=== PATIENT | male | born 1985 | race Caucasian/White ===

== ENCOUNTER 2017-06-19 23:00 | Emergency (ER) | payer SELFPAY ==
[~2017-06-19] VITALS: Ht 180.3 cm; Wt 86.2 kg
== END 2017-06-19 23:30 | disposition left against medical advice (07) ==
LOC: ED 23:00
DX: Z53.21 Procedure and treatment not carried out due to patient leaving prior to being seen by health care provider (principal)

== ENCOUNTER 2017-08-02 11:03 | Emergency (ER) | payer OTHER ==
[~2017-08-02] VITALS: Ht 172.7 cm; Wt 77.1 kg
--- NOTE | 2017-08-02 15:01 | EKG ---
[facility] [address] [place] [address] Signed Sinus rhythm with marked sinus arrhythmia Nonspecific ST abnormality Abnormal QRS-T angle, consider primary T wave abnormality Abnormal ECG When compared with ECG of 09-APR-2016 02:38, Inverted T waves have replaced nonspecific T wave abnormality in Inferior leads Confirmed by TOAN CHAVEZ MD ([id number]) on 08/02/2017 3:01:02 PM Electronically Signed By: TOAN CHAVEZ MD 08/02/17 1501 PATIENT NAME: RASHEEDA SALAS Electrocardiogram DATE OF : 85 PHYSICIAN: TOAN CHAVEZ MD REPORT #: [id number] REPORT IS CONFIDENTIAL AND NOT TO BE RELEASED WITHOUT AUTHORIZATION
== END 2017-08-02 13:13 | disposition home or self-care (01) ==
LOC: ED 11:03
DX: F41.0 Panic disorder [episodic paroxysmal anxiety] (principal); R07.9 Chest pain, unspecified; Z87.891 Personal history of nicotine dependence
CPT/HCPCS: 71046; 80053; 84484; 85025; 93005; 93010; 99284

== ENCOUNTER 2017-09-10 02:05 | Emergency (ER) | payer OTHER ==
[~2017-09-10] VITALS: Ht 172.7 cm; Wt 77.1 kg
== END 2017-09-10 02:37 | disposition home or self-care (01) ==
LOC: ED 02:05
DX: R11.0 Nausea (principal); Z72.89 Other problems related to lifestyle; F41.9 Anxiety disorder, unspecified; Z87.891 Personal history of nicotine dependence
CPT/HCPCS: 99282

== ENCOUNTER 2018-07-05 21:18 | Emergency (ER) | payer OTHER ==
[~2018-07-05] VITALS: Ht 172.7 cm; Wt 86.2 kg
[~2018-07-05 21:18] MED LIST: PERCOCET 5-3251 EACH PO
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
== END 2018-07-06 00:32 | disposition home or self-care (01) ==
LOC: ED 21:18
DX: M62.838 Other muscle spasm (principal); F15.10 Other stimulant abuse, uncomplicated; F41.9 Anxiety disorder, unspecified; F17.200 Nicotine dependence, unspecified, uncomplicated; Z88.0 Allergy status to penicillin; Z79.899 Other long term (current) drug therapy
CPT/HCPCS: 71046; 80053; 81001; 83735; 85025; 96361; 96374; 99284-25; J1200; J7030

== ENCOUNTER 2018-07-06 15:02 | Emergency (ER) | payer OTHER ==
[~2018-07-06] VITALS: Ht 172.7 cm; Wt 86.2 kg
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
== END 2018-07-06 17:37 | disposition home or self-care (01) ==
LOC: ED 15:02
DX: T14.8XXA Other injury of unspecified body region, initial encounter (principal); E86.0 Dehydration; F15.129 Other stimulant abuse with intoxication, unspecified; F41.9 Anxiety disorder, unspecified; F17.200 Nicotine dependence, unspecified, uncomplicated; Z88.0 Allergy status to penicillin; W22.8XXA Striking against or struck by other objects, initial encounter
CPT/HCPCS: 80053; 85025; 96374; 96375; 99285-25; G0480; J1630; J2060; J7030

== ENCOUNTER 2020-11-20 13:11 | Emergency (ER) | payer SELFPAY ==
[~2020-11-20] VITALS: Ht 172.7 cm; Wt 86.2 kg
--- OUTSIDE RECORDS SUMMARY | 2020-11-20 13:16 | XMS ---
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 SALAS Security Perioperative Assistant Events No recent Security Events currently on file CRITERIA MET - Group Notification - 6 ED Visits in 6 Months - [facility] - 3 Facilities in 90 Days [facility]: [phone] [facility]: Primary Care 09/07/2020-Current MEDICAL CONCERN PHONE: [phone] [facility]: [facility] 09/07/2020-[facility] or [facility] PHONE: [phone] Jerrod has no Care Guidelines for this patient. Care History Medical/Surgical 07/06/2018 [facility] - PATIENT CONTACT NUMBER NO LONGER IN SERVICE- - IF PATIENT IS SEEN IN THE ED DURING BUSINESS HOURS MONDAY THRU MONDAY - PLEASE CONTACT [facility] IF PATIENT IS WILLING TO ACCEPT HELP. CONTACT # [phone]. - PATIENT DOES NOT HAVE A PCP - PLEASE PROVIDE CHW CONTACT # [phone] FOR FURTHER HELP/ASSISTANCE. E.D. VISIT COUNT (12 MO.) 1 Praveen Schilling 1 Praveen Garcia 1 [facility] 2 [facility] 3 [facility] 2 [facility] 2 [facility] [address] [facility] 1 [facility] TOTAL 15 NOTE: Visits indicate total known visits. ED/UCC VISIT TRACKING (12 MO.) 11/20/2020 13:11 REMI Peng [place] TYPE: Emergency COMPLAINT: - LEG/NECK PAIN 10/16/2020 00:21 [facility] [place] TYPE: Emergency COMPLAINT: - Pain in left foot DIAGNOSES: 1. Contusion of left foot, initial encounter 2. Other fall from one level to another, initial encounter 3. Essential (primary) hypertension 4. Nicotine dependence, cigarettes, uncomplicated 10/12/2020 02:18 Eltondylan Diallo DEWY ROSE NATALIIA [place] TYPE: Emergency DIAGNOSES: - Cervicalgia - Anxiety 10/09/2020 09:11 [facility] [place] TYPE: Emergency COMPLAINT: - EMS anxiety DIAGNOSES: - EMS anxiety 10/09/2020 07:52 Lo Ordoñez [place] TYPE: Emergency DIAGNOSES: - Chest pain, unspecified - Chest pain - Procedure and treatment not carried out because of patient's decision for other reasons 10/03/2020 18:45 [facility] [place] TYPE: Emergency COMPLAINT: - Tinnitus, unspecified ear - Essential (primary) hypertension DIAGNOSES: 1. Tinnitus, unspecified ear 2. Essential (primary) hypertension 09/26/2020 15:32 Praveen Nunez [place] TYPE: Emergency DIAGNOSES: - Epididymitis - Testicle Pain - Cellulitis, unspecified 06/03/2020 09:39 [facility] [place] TYPE: Emergency DIAGNOSES: - Cervicalgia - NECK GRINDING 06/01/2020 19:06 [facility] TYPE: Emergency DIAGNOSES: - Other stimulant abuse, uncomplicated - general 03/24/2020 23:23 [facility] NATALIIA [place] TYPE: Emergency DIAGNOSES: - Anxiety disorder, unspecified - Mental Health Evaluation - Cervicalgia 03/14/2020 02:31 [facility] TYPE: Emergency COMPLAINT: - Elevated blood-pressure reading, without diagnosis of hypertension DIAGNOSES: 1. Anxiety disorder, unspecified 02/02/2020 08:56 [facility] TYPE: Emergency COMPLAINT: - NECK PAIN - Unspecified injury of neck, initial encounter - Unspecified abnormal involuntary movements DIAGNOSES: 1. Osteophyte, vertebrae 2. Fall on same level from slipping, tripping and stumbling without subsequent striking against object, initial encounter 3. Other cervical disc degeneration at C4-C5 level 01/30/2020 11:56 Lo Nunez [place] TYPE: Emergency DIAGNOSES: - Chest Pain - Shortness of breath - Shortness of Breath 01/02/2020 13:59 [facility] [place] TYPE: Emergency COMPLAINT: - Dysuria DIAGNOSES: 1. Dysuria 2. Hematuria, unspecified 3. Allergy status to penicillin 01/01/2020 15:55 [facility] Valarie Nunez [place] TYPE: Emergency DIAGNOSES: - Dysuria - Hematuria INPATIENT VISIT TRACKING (12 MO.) No inpatient visits to display in this time frame [id number]
== END 2020-11-20 16:21 | disposition home or self-care (01) ==
LOC: ED 13:11
DX: M54.2 Cervicalgia (principal); Z88.0 Allergy status to penicillin
CPT/HCPCS: 72125; 99283-25

== ENCOUNTER 2022-04-01 19:00 | Emergency (ER) | payer SELFPAY ==
[~2022-04-01] VITALS: Ht 172.7 cm; Wt 86.2 kg
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
[2022-04-01] MEDS ORDERED: MELOXICAM15 MG PO (20:01)
[2022-04-01] MEDS ORDERED: CYCLOBENZAPRINE10 MG PO (20:01)
== END 2022-04-01 20:27 | disposition home or self-care (01) ==
LOC: ED 19:00
DX: S16.1XXA Strain of muscle, fascia and tendon at neck level, initial encounter (principal); F17.200 Nicotine dependence, unspecified, uncomplicated; Z88.0 Allergy status to penicillin; X58.XXXA Exposure to other specified factors, initial encounter
CPT/HCPCS: 72040; 99283-25

== ENCOUNTER → 2022-04-30 | Emergency (ER) | payer SELFPAY ==
[~2022-04-30] VITALS: Ht 172.7 cm; Wt 86.2 kg
[~2022-04-30] MED LIST changes: +CYCLOBENZAPRINE10 MG PO; +MELOXICAM15 MG PO
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
== END ==
LOC: ED 01:39
DX: M50.30 Other cervical disc degeneration, unspecified cervical region (principal); F17.200 Nicotine dependence, unspecified, uncomplicated; Z88.0 Allergy status to penicillin; Z79.899 Other long term (current) drug therapy
CPT/HCPCS: 96372; 99283; J1885; J3360

== ENCOUNTER 2023-10-15 17:44 | Emergency (ER) | payer OTHER ==
[~2023-10-15] VITALS: Ht 172.7 cm; Wt 87.9 kg
[2023-10-15] MEDS ORDERED: ADDERALL XR 3030 MG PO (17:59)
[2023-10-15] MEDS ORDERED: DIPHTH,PERTUSS(ACELL),TET VAC 0.5 ML SYRINGE IM ONE (18:00)
[2023-10-15 20:23] VITALS: BP 145/76
== END 2023-10-15 20:12 | disposition home or self-care (01) ==
LOC: ED 17:44
DX: S61.411A Laceration without foreign body of right hand, initial encounter (principal); F17.200 Nicotine dependence, unspecified, uncomplicated; W45.8XXA Other foreign body or object entering through skin, initial encounter; Z88.0 Allergy status to penicillin; Z79.899 Other long term (current) drug therapy

== ENCOUNTER 2024-02-01 02:10 | Inpatient (IN) | payer OTHER ==
[~2024-02-01] VITALS: Ht 175.3 cm; Wt 86.0 kg
[~2024-02-01 02:10] MED LIST changes: +ADDERALL XR 3030 MG PO
[2024-02-01] MEDS ORDERED: OLANZAPINE7.5 MG PO (02:25)
[2024-02-01 02:40] LABS: MCH 29.2 (27-36); MCHC 33.4 g/dl (30-36); MCV 87.3 fl (81-99)
[2024-02-01 02:42] LABS: BASOPHILS 0.4 % (0-2); HEMATOCRIT 47.8 % (35.0-50.0); LYMPHOCYTES 6.5 % (24-44); MONOCYTES 8.5 % (0-12); NEUTROPHILS 84.6 % (39-80); PLATELET COUNT 301 K/uL (140-440); RBC 5.48 M/ul (4.3-5.7); RDW 13.4 (10.5-15.0)
[2024-02-01 03:00] LABS: ALBUMIN 4.6 g/dL (3.4-5.0); ALCOHOL, MEDICAL <3 ng/dL (<3); ALKALINE PHOSPHATASE 139 U/L (46-116); ALT (SGPT) 113 U/L (14-59); ANION GAP 22.9 (7-21); AST (SGOT) 125 U/L (15-37); BILIRUBIN, TOTAL 0.7 ng/dL (0.2-1.0); BUN/CREATININE RATIO 10.89 (6.0-28.6); CALCIUM 10.1 mg/dL (8.5-10.1); CARBON DIOXIDE 23 mmol/L (21-32); CHLORIDE 101 mmol/L (98-107); CREATININE, SERUM 2.02 mg/dL (0.70-1.30); GLOMERULAR FILTRATION RATE,EST 42 mL/min (>60); POTASSIUM 3.9 mmol/L (3.5-5.1); PROTEIN, TOTAL 8.8 g/dL (6.4-8.2); TSH, 3RD GENERATION 0.989 uIU/mL (0.358-3.740); UREA NITROGEN 22 mg/dL (7-18)
[2024-02-01 03:11] LABS: ACETAMINOPHEN 0 ug/mL (10-30); SALICYLATE 2.1 mg/dL (2.8-20.0)
[2024-02-01] MEDS ORDERED: SODIUM CHLORIDE 0.9% 2,000 ML IV SCH (03:15)
[2024-02-01 03:33] LABS: LACTIC ACID, BLOOD 3.9 mmol/L (0.4-2.0)
[2024-02-01] MEDS ORDERED: SODIUM CHLORIDE 0.9% 1,000 ML IV SCH ×5 (03:45→18:00)
[2024-02-01] MEDS ORDERED: CEFTRIAXONE/SODIUM CHLORIDE 2 GM/100 ML PIGGYBACK IV ONE (03:45)
[2024-02-01 06:00] LABS: BILIRUBIN, URINE NEGATIVE (negative); BLOOD/HGB, URINE LARGE (Negative); KETONE, URINE SMALL (Negative); LEUK ESTERASE, URINE NEGATIVE (negative); NITRITE, URINE NEGATIVE (negative)
[2024-02-01 06:05] LABS: EPITHELIAL CELLS, URINE SQUAMOUS 1+ /lpf (0-1+)
[2024-02-01 06:06] LABS: BACTERIA, URINE RARE /hpf (negative); CASTS, URINE NONE SEEN \\lpf; COLLECTION TYPE, URINE CLEAN CATCH; CRYSTALS, URINE NONE SEEN (0-1+); REFLEX CULTURE, URINE No (No); WHITE BLOOD CELLS, URINE 0-1 /HPF (0-5)
[2024-02-01 06:08] LABS: PARTIAL THROMBOPLASTIN TIME 28.3 Sec (22.9-41.3)
[2024-02-01 06:14] LABS: AMPHETAMINES, URINE POSITIVE (NEGATIVE); BARBITURATES, URINE NEGATIVE (NEGATIVE); BENZODIAZEPINE, URINE NEGATIVE (NEGATIVE); BUPRENORPHINE, URINE POSITIVE (NEGATIVE); CANNABINOID, URINE NEGATIVE (NEGATIVE); COCAINE, URINE NEGATIVE (NEGATIVE); ECSTASY, URINE POSITIVE (NEGATIVE); FENTANYL, URINE NEGATIVE (NEGATIVE); METHADONE, URINE NEGATIVE (NEGATIVE); OPIATES, URINE NEGATIVE (NEGATIVE); OXYCODONE, URINE NEGATIVE (NEGATIVE); PHENCYCLIDINE, URINE NEGATIVE (NEGATIVE)
[2024-02-01 06:16] LABS: INR 1.11 (0.80-1.30); PROTIME 13.6 Sec (11.2-14.2)
[2024-02-01 06:28] LABS: ALBUMIN 3.8 g/dL (3.4-5.0); ALBUMIN/GLOBULIN RATIO 1.03 (1.1-2.4); ANION GAP 16.9 (7-21); BILIRUBIN, TOTAL 0.5 ng/dL (0.2-1.0); BUN/CREATININE RATIO 15.82 (6.0-28.6); CALCIUM 8.7 mg/dL (8.5-10.1); CREATININE, SERUM 1.39 mg/dL (0.70-1.30); POTASSIUM 3.9 mmol/L (3.5-5.1); PROTEIN, TOTAL 7.5 g/dL (6.4-8.2)
[2024-02-01] MEDS ORDERED: ondansetron HCL 4 MG/2 ML VIAL IV PRN (08:15)
[2024-02-01] MEDS ORDERED: ACETAMINOPHEN 325 MG TAB PO PRN (08:15)
[2024-02-01 08:55] VITALS: BP 149/98
--- NOTE | 2024-02-01 09:20 | NUR ---
PT UNAVAILABLE FOR VISIT. PROVIDED PRAYER.
[2024-02-01] MEDS ORDERED: AMPHETAMINE SAL30 MG PO (11:37)
--- NOTE | 2024-02-01 11:37 | NUR ---
MED REC COMPLETE
--- NOTE | 2024-02-01 11:56 | NUR ---
UR CLINICAL REVIEW: [facility] INPATIENT FOR RENAL FAILURE, ACUTE SELF-PAY INPT 02/01/24 @ 0811 ORDER MATCHES STATUS NO AUTH, NO INSURANCE. 02/03/24
[2024-02-01] MEDS ORDERED: PHARMACY RENAL DOSE ADJUSTMENT 1 DOSE MISC PO SCH (12:00)
--- NOTE | 2024-02-01 12:31 | NUR ---
BED ALARM STARTED TO GO OFF, I CAME IN TO PT ROOM AND HE JUST WANTED TO SIT ON THE EDGE OF THE BED. PT DIDNT NEED ANYTHING ELSE AND CALL LIGHT IS WITHIN REACH.
--- NOTE | 2024-02-01 13:20 | NUR ---
Spoke with New. He states he is homeless and has been incarcerated until 01/31/24. Pt's emergency contact lives in [place].He does not have any friends or family in [place]. Pt is on probation for 5 years and unable to leave the area. Pt spent one night sleeping on the street before admit to the hospital. He did complete an assessment with JUDAH and qualified for placement to the [facility]. They did not have any beds available. Pt does not use any DME. He has food stamps and states he has money for food on his card. Pt states he does drink and occassionally use drugs. He does not want to speak with PENNIE. He would like to use [facility] for a PCP. I will contact and fax his chart. I called and spoke with the [facility]. They remain full. Pt does not have a working phone, they are unable to notify him when a bed opens. I will give him the number to call daily to check for a bed.
[2024-02-01 13:21] VITALS: BP 136/64
[2024-02-01 13:35] LABS: ANION GAP 13.4 (7-21); BUN/CREATININE RATIO 16.66 (6.0-28.6); CALCIUM 8.2 mg/dL (8.5-10.1); CREATININE, SERUM 1.08 mg/dL (0.70-1.30); POTASSIUM 3.4 mmol/L (3.5-5.1)
--- NOTE | 2024-02-01 13:45 | EKG ---
[facility] [address] [facility] [place] [address] Signed Sinus tachycardia Otherwise normal ECG When compared with ECG of 02-AUG-2017 11:08, Vent. rate has increased BY 57 BPM Nonspecific T wave abnormality has replaced inverted T waves in Inferior leads Confirmed by Amber Cunningham MD () on 02/01/2024 1:45:27 PM Electronically Signed By: AMBER CUNNINGHAM MD 02/01/24 1345 PATIENT NAME: RASHEEDA SALAS RAMON Electrocardiogram DATE OF : 85 PHYSICIAN: AMBER CUNNINGHAM MD REPORT #: [id number] REPORT IS CONFIDENTIAL AND NOT TO BE RELEASED WITHOUT AUTHORIZATION
--- NOTE | 2024-02-01 14:50 | NUR ---
DISCUSSED LENGTH OF TIME PATIENT WILL LIKELY NEED FOR SNF. DISCUSSED HIS NEED FOR PLACEMENT AT THIS TIME TO ENSURE HIS POTENTIAL FOR REHAB IS MET. PATIENT STATES [facility], [facility] AND [facility] ARE HIS 3 PREFERENCES. CLINICALS FAXED TO THESE 3 FACILITIES. [facility] LIKELY WILL HAVE A BED OPEN TOMORROW, BUT WILL NEED TO REVIEW THE CLINICALS BEFORE ACCEPTING PATIENT.
--- NOTE | 2024-02-01 16:56 | NUR ---
PATIENT IN BED AT THIS TIME. PATIENT REQUESTED JUICE, TRANSIT POLICE OFFICER DOUBLE CHECKED WITH RN. TRANSIT POLICE OFFICER PROVIDED PATIENT WITH JUICE WITH ICE. CALL LIGHT WITHIN REACH, NO FURTHER NEEDS AT THIS TIME.
[2024-02-01 17:18] VITALS: BP 134/75
[2024-02-01] MEDS ORDERED: SODIUM CHLORIDE 0.9% 1,000 ML IV ONE ×5 (17:30)
--- NOTE | 2024-02-01 19:57 | NUR ---
REPORT RECIEVED FROM DAY SHIFT RN. PATIENT RESTING IN BED. RESPIRATIONS EVEN AND UNLABORED. CALL LIGHT IN REACH. BED ALARM ON FOR SAFETY.
[2024-02-01 20:26] VITALS: BP 129/75
--- NOTE | 2024-02-01 20:37 | NUR ---
PATIENT RESTING IN BED. VS AND I&Os OBTAINED AND RECORDED. NEW BAG IV FLUID INFUSING PER ORDER. PATIENT REQUESTING PAIN MEDICATION BUT REFUSING TYLENOL. PRN SLEEP MEDICATION PROVIDED. PATIENT IVs FLUSH WNL. ASSESSMENT COMPLETE. PATIENT DENIES FURTHER NEEDS AT THIS TIME. CALL LIGHT IN REACH.
[2024-02-01] MEDS ORDERED: OLANZapine 10 MG TAB PO SCH (21:00)
[2024-02-01] MEDS ORDERED: MELATONIN 3 MG TAB PO PRN (21:00)
--- NOTE | 2024-02-01 22:12 | NUR ---
THIS RN SPOKE VIA TELEPHONE WITH MD REGARDING PATIENTS MEDICATION REQUESTS TO BE ABLE TO SLEEP. NEW ORDERS RECIEVED. VERIFIED USING REPEAT BACK METHOD.
--- NOTE | 2024-02-01 22:56 | NUR ---
PATIENT RESTING IN BED. NEW BAG IV FLUID INFUSING PER ORDER. CATHETER BAG EMPTIED. NO FURTHER NEEDS. CALL LIGHT IN REACH.
--- NOTE | 2024-02-01 23:19 | NUR ---
THIS RN TO ROOM BY PATIENT REQUEST. PATIENT REQUESTING THAT HIS GÓMEZ CATHETER BE REMOVED.
--- NOTE | 2024-02-01 23:28 | NUR ---
THIS RN CALLED MD ABOUT PATIENT GÓMEZ REMOVAL REQUEST AND PATIENT REQUESTING NICOTINE PATCH. NEW ORDERS RECIEVED. VERIFIED USING REPEAT BACK METHOD.
[2024-02-01] MEDS ORDERED: diphenhydrAMINE HCL 50 MG CAP PO ONE (23:45)
[2024-02-01] MEDS ORDERED: NICOTINE 21 MG/24 HR 1 EA TDSY TD SCH (23:45)
[2024-02-02] VITALS (10 sets, daily range): BP systolic 105–146; BP diastolic 75–93
--- NOTE | 2024-02-02 00:15 | NUR ---
IV PUMP ALARMING. NEW BAG IV FLUID INFUSING PER ORDER. NICOTINE PATCH PLACED ON PATIENT R ARM PER PATIENT REQUEST. PATIENT REQUESTING ICE CREAM AND SANDWICH BOX, ICE CREAM AND SANDWICH BOX PROVIDED. PATIENT STATES NO FURTHER NEEDS. CALL LIGHT IN REACH.
--- NOTE | 2024-02-02 01:15 | NUR ---
PIECER UP OBTAINED VITALS AND I&O. PT CATH BAG EMPTIED. PT STATES NO FURTHER NEEDS AT THIS TIME. CALL LIGHT WITHIN REACH.
--- NOTE | 2024-02-02 01:20 | NUR ---
IV PUMP ALARMING. NEW BAG IV FLUID INFUSING PER ORDER. NO FURTHER NEEDS. CALL LIGHT IN REACH.
--- NOTE | 2024-02-02 01:59 | NUR ---
CALL LIGHT ANSWERED. PATIENT REPORTS HAVING NAUSEA. PRN NAUSEA MEDICATION ADMINISTERED PER PATIENT REQUEST. NO FURTHER NEEDS. CALL LIGHT IN REACH.
--- NOTE | 2024-02-02 03:52 | NUR ---
PATIENT RESTING IN BED, AWAKE. PATIENT STATES HIS NECK HURTS. PATIENT HAD URINAL BEHIND HIS HEAD, USING IT A PILLOW. THIS RN OFFERED PATIENT AN ICE PACK. PATIENT STATES "SURE, THAT MIGHT HELP". ICE PACK PROVIDED. URINAL OUT FROM BEHIND PATIENT HEAD AND PLACED ON COUNTER. NO FURTHER NEEDS. CALL LIGHT IN REACH.
[2024-02-02 05:24] LABS: BASOPHILS 0.5 % (0-2); EOSINOPHILS 1.9 % (0-6); HEMATOCRIT 37.9 % (35.0-50.0); HEMOGLOBIN 12.9 g/dL (12.0-18.0); LYMPHOCYTES 29.2 % (24-44); MCH 29.6 (27-36); MCV 87.1 fl (81-99); NEUTROPHILS 56.4 % (39-80); PLATELET COUNT 144 K/uL (140-440); RBC 4.35 M/ul (4.3-5.7); RDW 13.2 (10.5-15.0)
--- NOTE | 2024-02-02 05:28 | NUR ---
VS AND I&Os OBTAINED AND RECORDED. PATIENT DENIES NEEDS AT THIS TIME. CALL LIGHT IN REACH.
[2024-02-02 05:52] LABS: ALBUMIN 3.2 g/dL (3.4-5.0); ALBUMIN/GLOBULIN RATIO 1.03 (1.1-2.4); ANION GAP 13.8 (7-21); BILIRUBIN, TOTAL 0.8 ng/dL (0.2-1.0); BUN/CREATININE RATIO 13.04 (6.0-28.6); CREATININE, SERUM 0.69 mg/dL (0.70-1.30); MAGNESIUM 1.6 mg/dL (1.8-2.4); PHOSPHORUS, INORGANIC 2.4 mg/dL (2.5-4.9); POTASSIUM 3.8 mmol/L (3.5-5.1); PROTEIN, TOTAL 6.3 g/dL (6.4-8.2)
[2024-02-02] MEDS ORDERED: SODIUM CHLORIDE 0.9% 1,000 ML IV SCH ×3 (06:00→20:00)
--- NOTE | 2024-02-02 06:22 | NUR ---
NEW BAG IV FLUID INFUSING PER ORDER. PATIENT HAS NO FURTHER NEEDS. CALL LIGHT IN REACH.
--- NOTE | 2024-02-02 08:39 | NUR ---
recieved report from manufacturing supervisor 2nd shift nurse at 0710. pt is curently awake and resting. pt states that he didnt get enough sleep and would like something to sleep. no other requests at this time
[2024-02-02] MEDS ORDERED: MAGNESIUM REPLACEMENT PROTOCOL ORAL/IV IV SCH (09:00)
[2024-02-02] MEDS ORDERED: ENOXAPARIN SODIUM 40 MG/0.4 ML SYR SUB-Q SCH (09:00)
[2024-02-02] MEDS ORDERED: MAGNESIUM SULFATE 2 GM/50 ML BAG IV ONE (09:30)
--- NOTE | 2024-02-02 09:30 | NUR ---
Spoke with New. Updated I have sent his chart to [facility] to establish care with a pcp. They are closed today. Nicolasa in Eligibility was able to get pt back on [facility] and this is now in the chart. There is still an issue with pt being homeless and not having a phone. Pt will need to check with [facility] for his appt and cont. to check with [facility] to see when a room opens.
--- NOTE | 2024-02-02 10:58 | NUR ---
PT NOT AVAILABLE FOR VISIT. PROVIDED PRAYER.
[2024-02-02] MEDS ORDERED: POTASSIUM REPLACEMENT PROTOCOL ORAL/IV PO SCH (13:45)
--- NOTE | 2024-02-02 16:22 | NUR ---
PATIENT ASKED FOR SOME EAR PLUGS. ASKED HIM IF HE WOULD LIKE THE BLINDS IN HIS ROOM DOWN AND HE SAID YES ALSO GOT HIM A EYE MASK.
--- NOTE | 2024-02-02 17:50 | NUR ---
IN TO START NEW BAG OF FLUIDS, SEE MAR. IV INFUSING WNL. PT REQUESTING WARM BLANKETS, WARM BLANKETS PROVIDED. PT DENIES ANY OTHER NEEDS AT THIS TIME. CALL LIGHT IN REACH. PT LAYING IN BED.
[2024-02-02 18:34] LABS: ANION GAP 10.8 (7-21); BUN/CREATININE RATIO 9.85 (6.0-28.6); CALCIUM 7.8 mg/dL (8.5-10.1); CREATININE, SERUM 0.71 mg/dL (0.70-1.30); POTASSIUM 3.8 mmol/L (3.5-5.1)
--- NOTE | 2024-02-02 19:02 | NUR ---
BEDSIDE REPORT RECEIVED FROM RHIANNA RN, PT AWAKE AND ALERT, FINISHED EATTING MEAL, NEW BAG OF NS HUNG AND INFUSING WELL PER BOLUS, PT REQUESTING SODA, GIVEN PER REQUEST. PT RESTING.
--- NOTE | 2024-02-02 19:50 | NUR ---
TC RECEIVED FROM DR AVNI MD UPDATE RECEIVED CONCERNING NEW ORDERS FOR NS BOLSUSES X 5 MORE THEN DECREASE TO MAINTAINCE OF 250ML/HR.
--- NOTE | 2024-02-02 20:21 | NUR ---
PT APPEARS TO SLEEP, RESP EVEN AND REG, EYE COVERING IN PLACE, NEW NS 1L HUNG, CONTINUES AT 999ML/HR, SITE INTACT, PT AWAKENS, STATES HAVING A LOT OF PAIN IN HIS PENIS, WANTING A BREAK FROM GÓMEZ DUE TO DISCOMFORT, GÓMEZ EMPTIED FOR 1250ML DILUTE YELLOW URINE, PT REQUESTING PAIN MEDICATION, PT REPORTS INJURY TO SCOTUM LATE 2022 TO EARLY 2023, REPORTS FELL OFF A ROOF AND HAD METAL SPIKE THROUGH SCOTUM WITH ONE TESTICLE PROTUDED, PT STATES HE HAD TO HAVE SURGERY TO REPLACE TESTICLE, PT STATES HE THINKS HE GOT A BAD INFECTION AT SURGICAL SITE BUT NEVER RECEIVED CARE, STATES A LOT OF PUS CAME OUT OF SITE, REPORTS NO FURTHER PROBLEMS IN SCOTUM AT THIS TIME. PLAN TO UPDATE MD AND CHECK INTO PAIN MED FOR PAIN IN PENIS. VS DONE AND STABLE.
--- NOTE | 2024-02-02 21:50 | NUR ---
TC TO DR HOLLY PER PT'S REQUEST DUE TO C/O PAIN AND REQUEST FOR SOMETHING STRONGER THAN TYLENOL FOR PAIN, DR HOLLY STATES UNABLE TO ORDER OPIATES AT THIS TIME, PLAN TO GIVE MELATONIN PRN, ICE BAG AND LUBICANT TO PENIS FOR COMFORT, PT UPDATED AND VOICED UNDERSTANDING, PT STATES HE DOESN'T WANT GÓMEZ REMOVED DUE TO NERVOUS IT WILL BE MORE PAINFUL TO REPLACE IF NECESSARY, ICE BAG AND LUBICANT GIVEN PER MD RECOMMENDATION. PT MEDICATED WITH MELATONIN PER ORDER PER PT REQUEST. PT ATTEMPTING TO REST.
--- NOTE | 2024-02-02 22:30 | NUR ---
PER REQUEST OF PRIMARY RN BENJAMIN, IN ROOM TO HANG NEXT 1L NS BOLUS, BOLUS INFUSING WNL. IV SITE WNL. pt RESTING IN BED WITH EUES CLOSED AND EYE MASK IN PLACE, ON RA. RR EVEN AND UNLABORED. NO DISTRESS NOTED. CALL LIGHT IN REACH AND PRIMARY RN UPDATED AND AWARE.
--- NOTE | 2024-02-02 23:33 | NUR ---
PT ASLEEP, RESP EVEN AND REG, NEW BAG OF NS HUNG AND INFUSING WELL A BOLUS.
[2024-02-03] VITALS (9 sets, daily range): BP systolic 116–144; BP diastolic 63–92
--- NOTE | 2024-02-03 00:33 | NUR ---
PT APPEARS TO SLEEP, RESP EVEN AND REG, #5 NS LITER HUNG AND RUNNING OVER AN HOUR, SITE INTACT, GÓMEZ EMPTIED 1400ML DILUTE YELLOW CLEAR URINE.
--- NOTE | 2024-02-03 01:42 | NUR ---
PT AWAKE BRIEFLY, NEW BAG OF NS HUNG AND RATE DECREASED TO 250ML/HR PER ORDER, PT REQUESTING A WARM BLANKET, GIVEN, VS STABLE, IV PATENT.
--- NOTE | 2024-02-03 02:35 | NUR ---
PT APPEARS TO SLEEP, RESP EVEN AND REG, EYE MASK IN PLACE, IV INFUSING WELL AT 250ML/HR.
--- NOTE | 2024-02-03 04:20 | NUR ---
PT AWAKE AND ALERT, REQUESTING PAIN MED FOR PENIS PAIN, MEDICATED WITH TYLENOL PER ORDER, SNACK GIVEN, GÓMEZ EMPTIED FOR 900ML DILUTE URINE, PT ATTEMPTING TO REST.
--- NOTE | 2024-02-03 05:15 | NUR ---
CHAIR UPHOLSTERER OBTAINED VITALS AND I&O. CATH BAG EMPTIED. PT STATES NO NEEDS AT THIS TIME. CALL LIGHT WITHIN REACH.
[2024-02-03 05:32] LABS: BASOPHILS 0.8 % (0-2); EOSINOPHILS 3.8 % (0-6); HEMATOCRIT 35.6 % (35.0-50.0); HEMOGLOBIN 11.9 g/dL (12.0-18.0); LYMPHOCYTES 44.1 % (24-44); MCH 29.7 (27-36); MCHC 33.4 g/dl (30-36); MONOCYTES 11.9 % (0-12); NEUTROPHILS 39.4 % (39-80); PLATELET COUNT 184 K/uL (140-440); RDW 13.2 (10.5-15.0)
--- NOTE | 2024-02-03 05:55 | NUR ---
PT AWAKE DUE TO IV ALARM, NEW BAG OF NS HUNG AND IV INFUSING WELL AT 250ML/HR, PT WITHOUT REQUESTS AT THIS TIME.
[2024-02-03 05:58] LABS: ALBUMIN 2.5 g/dL (3.4-5.0); ALBUMIN/GLOBULIN RATIO 0.93 (1.1-2.4); ANION GAP 13.8 (7-21); BILIRUBIN, TOTAL 0.3 ng/dL (0.2-1.0); BUN/CREATININE RATIO 6.66 (6.0-28.6); CALCIUM 7.8 mg/dL (8.5-10.1); CREATININE, SERUM 0.75 mg/dL (0.70-1.30); POTASSIUM 3.8 mmol/L (3.5-5.1); PROTEIN, TOTAL 5.2 g/dL (6.4-8.2)
[2024-02-03] MEDS ORDERED: SODIUM CHLORIDE 0.9% 1,000 ML IV SCH ×2 (07:00→21:00)
--- NOTE | 2024-02-03 07:05 | NUR ---
RECIEVED SHIFT REPORT. PT IS RESTING IN BED, EYES CLOSED, BREATHING EVEN AND UNLABORED. CALL LIGHT IN REACH.
--- NOTE | 2024-02-03 08:08 | NUR ---
Board has been updated and call light has been placed within reach. Urinal has been emptied with the output of 400 ml. Urine has been documented. No request from patient at this time
--- NOTE | 2024-02-03 10:53 | NUR ---
CALLED MD ON HEAD CT RESULTS. NO NEW ORDERS. DISCUSSED PT COUGHING AFTER INTAKE. NO NEW ORDERS. MD GAVE VERBAL ORDER TO HOLD OFF ON ATIVAN UNLESS PT IS BECOMING RESTLESS, SWEATING, AND HAS AN ELEVATED BP. REASSESS AT 1700.
--- NOTE | 2024-02-03 11:13 | NUR ---
MORNING ASSESSMENT COMPLETE. PT IS RESTING IN BED, AWAKE. DENIES NEEDS. CALL LIGHT IN REACH. NO NEW CHANGES.
[2024-02-03 13:47] LABS: ANION GAP 12.1 (7-21); BUN/CREATININE RATIO 7.57 (6.0-28.6); CALCIUM 7.8 mg/dL (8.5-10.1); CREATININE, SERUM 0.66 mg/dL (0.70-1.30); POTASSIUM 4.1 mmol/L (3.5-5.1)
--- NOTE | 2024-02-03 19:00 | NUR ---
BEDSIDE REPORT RECEIVED FROM RHIANNA RN, PT ASLEEP, RESP EVEN AND REG, NS INFUSING AT 250ML/HR, BED LOW POSITION, SIDE RAILS UP, EYE COVER IN PLACE.
--- NOTE | 2024-02-03 21:05 | NUR ---
PT AWAKEN FOR VS PER [employer] PROVIDER, NO REPORTS OF REQUESTS AT THIS TIME, VS REVIEWED AND WNL FOR PT.
--- NOTE | 2024-02-03 21:40 | NUR ---
NS BOLUS STARTED, 1L/HR, IV SITE PATENT.
--- NOTE | 2024-02-03 21:50 | NUR ---
PT RESTING QUIETLY, AWAKEN FOR ASSESSMENT, GÓMEZ EMPTIED LARGE AMOUNT DILUTE YELLOW URINE, PT DENIES REQUESTS AT THIS TIME, SL FLUSHES WELL IN LEFT AC, SITE INTACT.
--- NOTE | 2024-02-03 22:32 | NUR ---
PT REMAINS ASLEEP, 2ND LITER OF NS BOLUS STARTED, IV SITE PATENT, RESP EVEN AND REG.
--- NOTE | 2024-02-03 22:51 | NUR ---
PT REQUESTING A PUDDING, SODA AND MELATONIN, ALL GIVEN PER REQUEST, PT DENIES OTHER NEEDS AT THIS TIME.
--- NOTE | 2024-02-03 23:25 | NUR ---
PT ASLEEP, NS BOLUS #3 HUNG AND INFUSING WELL.
[2024-02-04] VITALS (8 sets, daily range): BP systolic 118–147; BP diastolic 74–96
--- NOTE | 2024-02-04 00:26 | NUR ---
PT RESTING QUIETLY, #4 BAG OF NS HUNG AND INFUSING WELL.
--- NOTE | 2024-02-04 02:30 | NUR ---
LAST BOLUS COMPLETED, NS BAG HUNG AND RATE DECREASED TO 250ML/HR, GÓMEZ OUT 1675ML, PT CONTINUES TO SLEEP, RESP EVEN AND REG.
--- NOTE | 2024-02-04 03:23 | NUR ---
PT APPEARS TO SLEEP, RESP EVEN AND REG, WITHOUT DISTRESS.
--- NOTE | 2024-02-04 04:45 | NUR ---
PT AWAKE AND ALERT, REQUESTING SANDWICH AND SODA, GIVEN, PT STATES HE WOKE UP DREAMING ABOUT "CHICKEN TENDERS", VS DONE AND STABLE, PT MEDICATED WITH TYLENOL PER REQUEST FOR PAIN IN HIS PENIS AREA 08/26, GÓMEZ EMPTIED FOR 1400ML DILUTE URINE, PT CHEERFUL AND TALKATIVE.
[2024-02-04 05:46] LABS: BASOPHILS 0.7 % (0-2); EOSINOPHILS 2.9 % (0-6); HEMATOCRIT 39.3 % (35.0-50.0); LYMPHOCYTES 33.3 % (24-44); MCH 29.4 (27-36); MCHC 33.1 g/dl (30-36); MCV 88.9 fl (81-99); MONOCYTES 9.3 % (0-12); NEUTROPHILS 53.8 % (39-80); PLATELET COUNT 203 K/uL (140-440); RBC 4.43 M/ul (4.3-5.7)
[2024-02-04 06:06] LABS: ALBUMIN 2.5 g/dL (3.4-5.0); ALBUMIN/GLOBULIN RATIO 0.86 (1.1-2.4); ANION GAP 13.5 (7-21); BILIRUBIN, TOTAL 0.3 ng/dL (0.2-1.0); BUN/CREATININE RATIO 4.76 (6.0-28.6); CALCIUM 8.1 mg/dL (8.5-10.1); CREATININE, SERUM 0.84 mg/dL (0.70-1.30); POTASSIUM 3.5 mmol/L (3.5-5.1); PROTEIN, TOTAL 5.4 g/dL (6.4-8.2)
--- NOTE | 2024-02-04 06:44 | NUR ---
PT ASLEEP, NEW BAG OF NS HUNG AND INFUSING WELL AT 250ML/HR, GÓMEZ EMPTIED FOR 950ML.
[2024-02-04] MEDS ORDERED: SODIUM CHLORIDE 0.9% 1,000 ML IV SCH ×3 (07:00→19:45)
--- NOTE | 2024-02-04 07:15 | NUR ---
Pt report received from GARLAND Kinsey. Pt is asleep, supine in bed, breathing regular, even, and non-labored. Pt is wearing a sleep mask and ear plugs. White board updated, call light in reach, side rails up, personal belongings and bedside table in reach.
[2024-02-04] MEDS ORDERED: POTASSIUM CHLORIDE 10 MEQ TABCR PO ONE (09:15)
[2024-02-04] MEDS ORDERED: MAGNESIUM SULFATE 2 GM/50 ML BAG IV SCH (09:30)
--- NOTE | 2024-02-04 12:39 | NUR ---
PC FROM DR. HOLLY. SHE REQUESTED WE ADVISE THE PT THE SHE WILL NOT BE DISCHARGING HIM UNTIL TOMORROW AND THAT WE WILL CONTINUE TO BOLUS IVF UNTIL HIS LABS DECREASE TO A SATISFACTORY NUMBER.
--- NOTE | 2024-02-04 13:44 | NUR ---
REPORT RECIEVED FROM GARLAND QUIÑONES. PT SLEEPING WITH A BOLUS INFUSING. PT STATES THE MAG RIDER GAVE HIM A STOMACH ACHE AND HE WILL EAT HIS LUNCH SHORTLY. STARTED 2\5 ORDERED BOLUS.
--- NOTE | 2024-02-04 14:05 | NUR ---
Provided Pt with lemon-bois forte soda. No other needs expressed by Pt. Call light left in reach.
--- NOTE | 2024-02-04 15:27 | NUR ---
PT RESTING IN BED. SHIFT ASSESSMENT COMPLETE. PT C/O PENILE PAIN, 08/26. REQ TYLENOL. DENIES ANY NEEDS AT THIS TIME. CALL LIGHT IN REACH.
--- NOTE | 2024-02-04 18:35 | NUR ---
Provided Pt with fresh lemon-eklutna soda. Checked vitals, I's & O's, and emptied tabares catheter. Call light left in reach. No other needs expressed by Pt.
--- NOTE | 2024-02-04 19:12 | NUR ---
BEDSIDE REPORT RECEIVED FROM KEYLA RN, PT ALERT AND ORIENTENED, KEYLA RN DISCUSSED IMPORTANCE FOR PT TO WALK IN THE REAGAN, PT UP TO AMBULATE, GAIT STEADY, TOLERATING AMBULATION WELL, PT CONCERNED WITH DISCHARGE FROM PENIS, DESCRIBES YELLOW THICK, KEYLA PLANS TO UPDATE MD FOR ORDERS.
--- NOTE | 2024-02-04 19:50 | NUR ---
REPORT RECEIVED FROM KEYLA HAQUE THAT #1 NS BOLUS OVER 1 HOUR STARTED, ALSO THAT UA COLLECTED FROM CATH PER AVIS MO AND SENT TO LAB, RESULTS PENDING.
[2024-02-04 19:59] LABS: BILIRUBIN, URINE NEGATIVE (negative); BLOOD/HGB, URINE TRACE-I (Negative); KETONE, URINE NEGATIVE (Negative); LEUK ESTERASE, URINE NEGATIVE (negative); NITRITE, URINE NEGATIVE (negative)
--- NOTE | 2024-02-04 20:00 | NUR ---
PATIENT CALLED TO HAVE HIS SALAD IN THE REFRIGERATOR WITH HIS NAME AND SODA. GIVEN. NO OTHER NEEDS AT THIS TIME.
[2024-02-04 20:14] LABS: BACTERIA, URINE NONE SEEN /hpf (negative); CASTS, URINE NONE SEEN \\lpf; COLLECTION TYPE, URINE CLEAN CATCH; CRYSTALS, URINE NONE SEEN (0-1+); EPITHELIAL CELLS, URINE NONE SEEN /lpf (0-1+); REFLEX CULTURE, URINE No (No)
--- NOTE | 2024-02-04 22:53 | NUR ---
PRIMARY RN IS AWARE OF PATIENT'S BP.
--- NOTE | 2024-02-05 00:30 | NUR ---
PT ASLEEP, RESP EVEN AND REG, #5 NS BOLUS HUNG AND INFUSING WELL.
--- NOTE | 2024-02-05 01:30 | NUR ---
PT ASLEEP, RESP EVEN AND REG, BOLUSES DONE, NS HUNG AND RATE DECREASED TO 250ML/HR.
--- NOTE | 2024-02-05 03:55 | NUR ---
PT APPEARS TO SLEEP, RESP EVEN AND REG, WITHOUT DISTRESS.
[2024-02-05 05:05] VITALS: BP 139/84
--- NOTE | 2024-02-05 05:27 | NUR ---
LAB IN FOR AM BLOOD DRAW, NEW BAG OF KAVEH HEART, CONTINUES AT 250ML/HR.
[2024-02-05 05:38] VITALS: BP 141/96
[2024-02-05 05:39] LABS: BASOPHILS 0.7 % (0-2); EOSINOPHILS 4.2 % (0-6); HEMATOCRIT 37.9 % (35.0-50.0); LYMPHOCYTES 37.4 % (24-44); MCH 29.7 (27-36); MCHC 34.1 g/dl (30-36); MONOCYTES 11.5 % (0-12); NEUTROPHILS 46.2 % (39-80); PLATELET COUNT 209 K/uL (140-440); RBC 4.36 M/ul (4.3-5.7); RDW 12.8 (10.5-15.0)
[2024-02-05 05:41] VITALS: BP 139/84
[2024-02-05 06:00] LABS: ALBUMIN 2.5 g/dL (3.4-5.0); ALBUMIN/GLOBULIN RATIO 0.81 (1.1-2.4); ANION GAP 10.4 (7-21); BILIRUBIN, TOTAL 0.2 ng/dL (0.2-1.0); BUN/CREATININE RATIO 8.57 (6.0-28.6); CALCIUM 8.4 mg/dL (8.5-10.1); CREATININE, SERUM 0.7 mg/dL (0.70-1.30); POTASSIUM 3.4 mmol/L (3.5-5.1); PROTEIN, TOTAL 5.6 g/dL (6.4-8.2)
[2024-02-05] MEDS ORDERED: SODIUM CHLORIDE 0.9% 1,000 ML IV SCH (06:30)
--- NOTE | 2024-02-05 08:29 | NUR ---
Board has been updated and call light has been placed within reach. Patient reports feeling pain in his zee area. Patient exsplained white puss comming from zee area. Nurse has been notified.
--- NOTE | 2024-02-05 08:42 | NUR ---
PATIENT ASSESSMENT IS COMPLETE. 0830 NS BOLUS INFUSING, 0630 AND 0730 BOLUSES WERE MISSED. GÓMEZ CATHETER REMOVED DUE TO PENIS IRRITATION, NO ORDER WAS EVER PLACED IN [facility] FOR A GÓMEZ CATHETER. PATIENT DENIES PAIN OR NAUSEA OTHERWISE.
[2024-02-05 08:53] VITALS: BP 139/84
--- NOTE | 2024-02-05 08:57 | NUR ---
MORNING ASSESSMENT IS COMPLETE. GÓMEZ CATHETER REMOVED PER PATIENT REQUEST. PATIENT WITH 7/10 URETHRAL PAIN AND BLOODY DISCHARGE WITH GÓMEZ. PATIENT REPORTS 0/10 PAIN AFTER GÓMEZ REMOVAL. X2 URINALS AT BEDSIDE. O830 NS BOLUS INFUSING. PATIENT ATE 100% OF BREAKFAST, NO OTHER NEEDS, PATIENT IS ASLEEP BEFORE THIS NURSE FINISHED CHARTING.
--- NOTE | 2024-02-05 09:00 | NUR ---
Attempted to call the [facility] to check if there is a bed open today or tomorrow. Unable to contact and left a message. Faxed pts chart to [facility]. Called shortly after chart was faxed, but they have not recieved. Faxed the chart again. Per 8:30 report, pt will be discharged tomorrow.
[2024-02-05] MEDS ORDERED: POTASSIUM CHLORIDE 10 MEQ TABCR PO ONE (09:15)
[2024-02-05 09:47] VITALS: BP 151/90
--- NOTE | 2024-02-05 10:36 | NUR ---
UR CONCURRENT REVIEW: [facility]-DOES NOT MEET GL DAY 2, VARIANCE COMPLETED [facility]PT 02/01/24 @ 0817 WILL SEND UPDATED CLINICALS TO [facility] FOR REVIEW AWAITING AUTH 02/07/24
--- NOTE | 2024-02-05 10:43 | NUR ---
PATIENT IS VOIDING WELL AFTER GÓMEZ CATHETER PLACEMENT, DENIES OTHER NEEDS.
--- NOTE | 2024-02-05 11:02 | NUR ---
PATIENT RESTING IN BED, VOIDING WELL AFTER CATHETER REMOVAL, URINE IS CLEAR VERY PALE YELLOW. NO OTHER NEEDS AT THIS TIME.
--- NOTE | 2024-02-05 11:50 | NUR ---
In and spoke with New. Pt now has a dc order. Updated I have attempted to call [facility] and I could not reach. He also has been attempting to contact. He states his aunt is sending money per [employer] to [employer]. He will have money to get a phone. He states he spoke with and labs have improved and he will be discharging today. Let him know I will attempt to call the [facility] again and [facility] to schedule an appt.
[2024-02-05] MEDS ORDERED: NICOTINE1 EAC2 TD (12:06)
[2024-02-05] MEDS ORDERED: TYLENOL325 MG PO (12:07)
--- NOTE | 2024-02-05 13:30 | NUR ---
I was able to reach the [facility]. They do not have a bed tonight, but pt is high on list and will probably be able to get in tomorrow. They request he check in, in person between 8:30 and 9:30 tomorrow am. I was able to reach [facility] and they scheduled a fu appt for at 1 pm. Above infor written on a sticky pad and given to the pt. Gave the pt two taxi tickets to get his rx's picked up from [facility] and to get to the [facility] from wherever he stays tonight. Pt now stating he will catch the [employer] bus to [place] and stay in their half-way and catch it back early AM to meet with the [facility]. Gave the pt [facility] transport number and let him know he has free transport to medical, dental, mental health appointment. Pt states understanding. Pt denies other needs. I did call the [facility] [facility] earlier, they no longer give out vouchers for hotel rooms as people have destroyed the rooms or refused to leave when the vouchers ran out.
--- NOTE | 2024-02-05 13:59 | NUR ---
DISCHARGE INSTRUCTIONS REVIEWED WITH WITH PATIENT. IV X2 REMOVED. NO OTHER NEEDS NOTED AT THIS TIME.
[2024-02-05 14:17] VITALS: BP 134/81
--- NOTE | 2024-02-05 15:03 | NUR ---
PATIENT GIVEN WHEELCHAIR RIDE TO FRONT DOOR TO MEET TAXI.
[2024-02-06] MEDS ORDERED: NICODERM CQ1 EAC2 TD (07:52)
== END 2024-02-05 15:05 | disposition home or self-care (01) | DRG 557 ==
LOC: ED 02:10 → MS 08:17
PROVIDERS: Emergency Medicine; ADMIT Family Medicine; ATTEND Family Medicine
DX: M62.82 Rhabdomyolysis (principal); A41.9 Sepsis, unspecified organism; N17.9 Acute kidney failure, unspecified; E83.42 Hypomagnesemia; F19.10 Other psychoactive substance abuse, uncomplicated; F90.9 Attention-deficit hyperactivity disorder, unspecified type; M79.5 Residual foreign body in soft tissue; R74.01 Elevation of levels of liver transaminase levels; F31.9 Bipolar disorder, unspecified; F41.9 Anxiety disorder, unspecified; F17.200 Nicotine dependence, unspecified, uncomplicated; Z88.0 Allergy status to penicillin
CPT/HCPCS: 36415; 51702; 51798; 71046; 80048; 80053; 80307; 81001; 82553; 83605; 83735; 84100; 84443; 85025; 85610; 85730; 87040; 93005; 93010; 99285-25; A9270; G0480; J0696; J1650; J2405; J3475; J7030; Q0163

== ENCOUNTER 2024-02-06 04:27 | Inpatient (IN) | payer OTHER ==
[~2024-02-06] VITALS: Ht 175.3 cm; Wt 90.7 kg
[2024-02-06] VITALS (7 sets, daily range): BP systolic 142–166; BP diastolic 80–93
[~2024-02-06 04:27] MED LIST changes: +AMPHETAMINE SAL30 MG PO; +NICOTINE1 EAC2 TD; +OLANZAPINE7.5 MG PO; +TYLENOL325 MG PO
[2024-02-06 04:53] LABS: BASOPHILS 0.4 % (0-2); HEMATOCRIT 38.9 % (35.0-50.0); HEMOGLOBIN 13.4 g/dL (12.0-18.0); LYMPHOCYTES 11.9 % (24-44); MCH 29.7 (27-36); MCHC 34.6 g/dl (30-36); MCV 85.8 fl (81-99); MONOCYTES 10.7 % (0-12); PLATELET COUNT 280 K/uL (140-440); RBC 4.53 M/ul (4.3-5.7); RDW 13.1 (10.5-15.0)
[2024-02-06 05:22] LABS: ALBUMIN 3.9 g/dL (3.4-5.0); ALBUMIN/GLOBULIN RATIO 1.08 (1.1-2.4); ANION GAP 15.1 (7-21); BILIRUBIN, TOTAL 0.7 ng/dL (0.2-1.0); BUN/CREATININE RATIO 9.61 (6.0-28.6); CALCIUM 9.4 mg/dL (8.5-10.1); CREATININE, SERUM 1.04 mg/dL (0.70-1.30); POTASSIUM 3.1 mmol/L (3.5-5.1); PROTEIN, TOTAL 7.5 g/dL (6.4-8.2)
[2024-02-06] MEDS ORDERED: LACTATED RINGER'S 1,000 ML IV ONE (05:30)
[2024-02-06 05:32] LABS: INFLUENZA B NAA NEGATIVE (NEGATIVE); RESPIRATORY SYNCYTIAL VIR NAA NEGATIVE (NEGATIVE)
[2024-02-06] MEDS ORDERED: CEFTRIAXONE/SODIUM CHLORIDE 2 GM/100 ML PIGGYBACK IV ONE (05:45)
[2024-02-06] MEDS ORDERED: SODIUM CHLORIDE 0.9% 1,000 ML IV PRN (05:45)
[2024-02-06 05:47] LABS: MAGNESIUM 1.3 mg/dL (1.8-2.4); PHOSPHORUS, INORGANIC 2.8 mg/dL (2.5-4.9)
[2024-02-06 06:13] LABS: LACTIC ACID, BLOOD 1.7 mmol/L (0.4-2.0)
[2024-02-06] MEDS ORDERED: MAGNESIUM HYDROXIDE 30 ML UDC PO PRN (06:15)
[2024-02-06] MEDS ORDERED: ACETAMINOPHEN 500 MG TAB PO PRN (06:15)
[2024-02-06] MEDS ORDERED: ondansetron HCL 4 MG/2 ML VIAL IV PRN (06:15)
[2024-02-06] MEDS ORDERED: PROCHLORPERAZINE EDISYLATE 10 MG/2 ML VIAL IV PRN (06:15)
[2024-02-06] MEDS ORDERED: SODIUM CHLORIDE 0.9% 1,000 ML IV SCH ×2 (06:15→17:30)
[2024-02-06 06:32] LABS: BILIRUBIN, URINE NEGATIVE (negative); BLOOD/HGB, URINE MODERATE (Negative); KETONE, URINE SMALL (Negative); LEUK ESTERASE, URINE NEGATIVE (negative); NITRITE, URINE NEGATIVE (negative)
[2024-02-06 06:39] LABS: RED BLOOD CELLS, URINE 0-1 /hpf (0-5); WHITE BLOOD CELLS, URINE 0-1 /HPF (0-5)
[2024-02-06 06:40] LABS: EPITHELIAL CELLS, URINE 0 /lpf (0-1+); REFLEX CULTURE, URINE No (No)
[2024-02-06 06:41] LABS: CASTS, URINE HYALINE 1+ \\lpf
[2024-02-06] MEDS ORDERED: MAGNESIUM OXIDE 400 MG TABLET PO ONE (06:45)
[2024-02-06] MEDS ORDERED: POTASSIUM CHLORIDE 10 MEQ TABCR PO ONE (06:45)
[2024-02-06 06:46] LABS: AMPHETAMINES, URINE POSITIVE (NEGATIVE); BARBITURATES, URINE NEGATIVE (NEGATIVE); BENZODIAZEPINE, URINE NEGATIVE (NEGATIVE); BUPRENORPHINE, URINE POSITIVE (NEGATIVE); CANNABINOID, URINE NEGATIVE (NEGATIVE); COCAINE, URINE NEGATIVE (NEGATIVE); ECSTASY, URINE NEGATIVE (NEGATIVE); FENTANYL, URINE NEGATIVE (NEGATIVE); METHADONE, URINE NEGATIVE (NEGATIVE); OPIATES, URINE NEGATIVE (NEGATIVE); OXYCODONE, URINE NEGATIVE (NEGATIVE); PHENCYCLIDINE, URINE NEGATIVE (NEGATIVE)
--- NOTE | 2024-02-06 07:03 | NUR ---
[place] 124 [place] [id number], ALERT ANDORIENTED, HELPED SELF FROM CHAIR TO BED. IVF INFUSING BOTH AC'S. 5 IV BOLUS,. PT COOPERATIVE WITH ADMIT AQUESTIONS. VOIDED. 1PA
--- NOTE | 2024-02-06 07:28 | NUR ---
REPORT RECEIVED FROM GARLAND TOURE. PT AWAKE AND DR INTO ROOM. PT APPEARS FLUSHED AND HAS MORE "TIRED" SOUNDING SPEECH THAN YESTERDAY AT DISCHARGE. PT HAS LR ON STRAIGHT TUBING INTO RIGHT IV AND NS ON PUMP INTO LEFT IV. PT ASKED FOR MORE URINALS. DR IN ROOM.
[2024-02-06] MEDS ORDERED: NICODERM CQ1 EAC2 TD (07:52)
[2024-02-06] MEDS ORDERED: POTASSIUM CHLORIDE 10 MEQ TABCR PO SCH (08:00)
[2024-02-06] MEDS ORDERED: MAGNESIUM SULFATE 2 GM/50 ML BAG IV SCH (08:00)
[2024-02-06 08:02] LABS: N. GONORRRHOEAE BY PCR NOT DETECTED (NOT DETECT)
--- NOTE | 2024-02-06 08:03 | NUR ---
MED REC COMPLETE
--- NOTE | 2024-02-06 08:03 | NUR ---
report given to kelly herring in ccu. pt transfered to 127.
--- NOTE | 2024-02-06 08:15 | NUR ---
38 YEAR OLD MALE PATIENT ADMITTED TO CCU FROM [facility] VIA BED WITH DX RHABDOMYLOYSIS. PATIENT WAS DISCHARGED FROM [facility] YESTERDAY. HE WAS AT THIS HOSPITAL FOR 4 DAYS WITH THE DX OF RHABDOMYLOYSIS, CK LAST EVENING WAS 600, ON ADMIT THIS AM [id number]. PATIENT DENIES PAIN. IVF INFUISNG AT 999. RECEIVING CONTINOUS BOLUS OF NS AT THIS TIME. ASSESSMNENT DONE. TALKED WITH PATIENT ABOUNT POC. INDICATES UNDERSTANDING.
[2024-02-06] MEDS ORDERED: MAGNESIUM REPLACEMENT PROTOCOL ORAL/IV IV SCH (09:00)
[2024-02-06] MEDS ORDERED: POTASSIUM REPLACEMENT PROTOCOL ORAL/IV PO SCH (09:00)
[2024-02-06] MEDS ORDERED: ENOXAPARIN SODIUM 40 MG/0.4 ML SYR SUB-Q SCH (09:00)
--- NOTE | 2024-02-06 09:00 | NUR ---
IS VERY TIRED. ASKING TO BE LEFT ALONE SO HE CAN SLEEP. TOLD PATIENT I WILL BE NEEDING TO HANG IVF FREQUENTLY AND WILL BE EXPECTING HIM TO BE URINATING FREQUENTLY. PATIENT IS REQUESTING MANY THINGS, POP, TV CONTROL, MOUTHWSH, ALL HYGIENE MATERIAL. ALL OF THESE ITEMS GIVEN. IVF OCCLUDED FREQUENTLY. IV SITES ARE IN AC BILAT. HAS BEEN USING URINAL AND VOIDING AT BEDSIDE. IS STABLE ON FEET. URINE IS CLEAR YELLOW IN COLOR. HAS BEEN COOPERTIVE.
[2024-02-06] MEDS ORDERED: POTASSIUM CHLORIDE 40 MEQ,LIDOCAINE HCL 1% 40 MG in DEXTROSE 5% 250 ML IV ONE (09:30)
[2024-02-06] MEDS ORDERED: NICOTINE 21 MG/24 HR 1 EA TDSY TD PRN (10:00)
[2024-02-06] MEDS ORDERED: PANTOPRAZOLE SODIUM 40 MG TABEC PO SCH (10:00)
--- NOTE | 2024-02-06 10:00 | NUR ---
NO CHANGES. VOING FREQUENTLY. MD AWARE OF PATIENT NOT TAKING PO KCL, IV KCL ORDERED. BREAKFAST REMAINS AT BEDSIDE PER PATIENT REQUEST. STATES HE PAM LIKE TH TRAY TO STAY HE MIGHT WANT A FEW BITES LATER. RESTLESS AT TIMES.
--- NOTE | 2024-02-06 10:23 | NUR ---
PT NOT AVAILABLE FOR VISIT. PROVIDED PRAYER.
--- NOTE | 2024-02-06 10:59 | NUR ---
PATIENT ALERT AND ORIENTED IN BED. STATES HE WAS UNABLE TO [employer] YESTERDAY, BUT DID GET TYLENOL AND NICOTINE PATCHES AT [place] FROM FACILITY. STATES HE HAD NOT BEEN DRINKING ENOUGH WATER. STATES HE IS AWARE OF HIS NEED TO CHECK INTO [facility] REGARDING HOUSING AT [place]. STATES HE IS HOPING HE GETS ENOUGH FLUID HE IS ABLE TO STAY HEALTHY AFTER THIS HOSPITALIZATION. DENIES NEEDS FOR DISCHARGE AT THIS TIME. INFORMED HIM STAFF WILL RECHECK IN WITH HIM TOMORROW TO ENSURE HIS NEEDS ARE CONTINUING TO BE MET AND REVIEW ANY CHANGES. VERBALIZES UNDERSTANDING.
[2024-02-06] MEDS ORDERED: PHARMACY RENAL DOSE ADJUSTMENT 1 DOSE MISC PO SCH (12:00)
--- NOTE | 2024-02-06 12:08 | NUR ---
RESTLESS. DENIES PAIN. C/O FEELING VERY TIRED. ASKING TO BE LEFT ALONE. CONTINUES TO DENY PAIN. ASSESSNEMT DONE.
--- NOTE | 2024-02-06 13:10 | NUR ---
UP TO BR. UP TO BR. PATIENT PULLED MONITOR OFF, UPON RETURN TO BED, PATIENT STATES HE DOES NOT WANT THE MONITOR ON. TELE APPLIED. EDGY. HAS NOT YET TOUCHED HIS LUNCH. DENIES NAUSEA. STATES HE DOES NOT FEEL LIKE EATING. NO PAIN WITH PALPATION OF ABD. VOIDING FREQUENTLY. URINE REMAINS CLEAR YELLOW.
--- NOTE | 2024-02-06 15:25 | NUR ---
DR. CHOWDHURY HERE TO SEE PATIENT. ORDERS RECEIVED TO HOLD IVF FOR NOW AND DO LABS NOW. IVF TO OFF. PATIENT IS ABLE TO MOVE WELL WITHOUT PAIN.
--- NOTE | 2024-02-06 15:41 | NUR ---
UR CLINICAL REVIEW: [facility] IN[facility] INPT 02/06/24 @ 0612 ORDER MATCHES REG DOCUMENTS FAXED TO [facility] FOR AUTH REVIEW DISCHARGE PENDING FURTHER ASSESSMENT 02/09/24
[2024-02-06 16:24] LABS: ALBUMIN 3.7 g/dL (3.4-5.0); ANION GAP 13.4 (7-21); BILIRUBIN, TOTAL 0.7 ng/dL (0.2-1.0); BUN/CREATININE RATIO 6.97 (6.0-28.6); CALCIUM 8.7 mg/dL (8.5-10.1); CREATININE, SERUM 0.86 mg/dL (0.70-1.30); POTASSIUM 3.4 mmol/L (3.5-5.1); PROTEIN, TOTAL 7.4 g/dL (6.4-8.2)
--- NOTE | 2024-02-06 16:40 | NUR ---
UP IN BATHROOM SHAVING. STABLE ON FEET. DENIES PAIN OR DIZZINESS. ASSESSMENT DONE EARLIER. NO CHANGES.
--- NOTE | 2024-02-06 17:00 | NUR ---
ZOFRAN 4 MG IV GIVEN FOR SLIGHT NAUSEA. IVF HUNG AT 200 ML/HR. PATIENT SITTING AT BEDSIDE.
--- NOTE | 2024-02-06 18:30 | NUR ---
TOOK FEW BITES OF DINNER. THIS IS THE FIRST BITES OF FOOD HE HAS HAD ALL DAY. DR. CHOWDHURY UPDATED ON PATIENT SLIGHT NAUSEA AND ZOFRAN GIVEN ALSO AWARE OF K LEVEL. NO FUTHER ORDERS AT THIS TIME.
--- NOTE | 2024-02-06 19:05 | NUR ---
NO FUTHER CHANGES. PATIENT IS RESTING IN BED. TOOK ONLY FEW BITES OF APPLE FOR DINNER. WISHES TO LEAVE THE DINNER TRAY AT THE BEDSIDE. PATIENT STATES HE DOES FEEL A LITTLE BETTER NOW THAN HE DID. REPORT TO NEXT SHIFT.
--- NOTE | 2024-02-06 19:53 | NUR ---
SBAR REPORT RECEIVED FROM GARLAND DAVENPORT. ALL EVENTS OF THE DAY WERE DISCUSSED AND PLAN OF CARE REVIEWED.
--- NOTE | 2024-02-06 20:12 | NUR ---
RASHEEDA REPORTED THIRST AND REQUESTED GINGRALE X 2. HE IS ALERT AND ORIENTED X 4, MOVES ALL EXTREMITIES, HAS SOME GENERALIZED MUSCLE ACHES 3/10, ENDORSES A NEED FOR SLEEP AND A CIGARETTE. HE DENIES NEEDING MELATONIN BUT WILL ACCEPT A NICODERM PATCH.
[2024-02-06] MEDS ORDERED: MELATONIN 3 MG TAB PO PRN (21:00)
--- NOTE | 2024-02-06 21:15 | NUR ---
NEURO- ALERT AND ORIENTED X4, MOVES ALL EXTREMITIES, ENDORSES FULL SENSATION, STRENGHT 5/5, PERRL CARDIAC- NSR, AFEBRILE, TELE #8 RESP- RA, CLEAR BREATH SOUNDS, ABLE TO COUGH AND DEEP BREATH GI/- ACTIVE BOWEL TONES, PASSING FLATUS, VOIDING IN URINAL INT- SEE ASSESSMENT
--- NOTE | 2024-02-06 22:35 | NUR ---
RASHEEDA IS RESTING IN BED WITH EYES CLOSED. SAFETY CHECK OF ROOM PERFORMED. VSS AND WDL PER MONITOR. NSR NO NEEDS ENDORSED AT THIS TIME
--- NOTE | 2024-02-07 00:09 | NUR ---
RASHEEDA CALLED AND REPORTED DIFFICULTY RESTING. GENERAL BODY ACHES REMAIN 3/10. PRN ACETAMINOPHEN, MELATONIN, WARM BLANKETS, AND CHAMOMILE TEA PROVIDED. RASHEEDA REPORTS COMFORT OTHERWISE AND STATES THAT HIS APPETITE IS INCREASING. VSS AND WDL PER MONITOR, SAFETY CHECK OF ROOM PERFORMED. NO OTHER NEEDS ENDORSED AT THIS TIME
--- NOTE | 2024-02-07 04:50 | NUR ---
ROUNDED WITH MD CHOWDHURY. OK TO D/C TELEMETRY MONITORING. SEE PAPER CHARTING FOR EVENTS THAT OCCURRED DURING MEDITECH DOWNTIME
--- NOTE | 2024-02-07 04:53 | NUR ---
RASHEEDA IS RESTING IN BED WITH EYES CLOSED. NO NEEDS ENDORSED AT THIS TIME
[2024-02-07 05:47] LABS: BASOPHILS 1.2 % (0-2); EOSINOPHILS 2.1 % (0-6); HEMATOCRIT 33.9 % (35.0-50.0); HEMOGLOBIN 11.7 g/dL (12.0-18.0); LYMPHOCYTES 37.1 % (24-44); MCH 29.7 (27-36); MCHC 34.4 g/dl (30-36); MCV 86.2 fl (81-99); MONOCYTES 13.9 % (0-12); NEUTROPHILS 45.7 % (39-80); PLATELET COUNT 236 K/uL (140-440); RBC 3.93 M/ul (4.3-5.7); RDW 13.3 (10.5-15.0)
[2024-02-07 06:15] LABS: ANION GAP 11.1 (7-21); BILIRUBIN, TOTAL 0.5 ng/dL (0.2-1.0); BUN/CREATININE RATIO 4.05 (6.0-28.6); CALCIUM 8.3 mg/dL (8.5-10.1); CREATININE, SERUM 0.74 mg/dL (0.70-1.30); MAGNESIUM 1.9 mg/dL (1.8-2.4); POTASSIUM 3.1 mmol/L (3.5-5.1)
[2024-02-07] MEDS ORDERED: POTASSIUM CHLORIDE 10 MEQ TABCR PO ONE (06:45)
--- NOTE | 2024-02-07 06:47 | NUR ---
UPDATED MD CHOWDHURY REGARDING LABS. FLUID GTT D/C, ORDER FOR PO POTASSIUM
--- NOTE | 2024-02-07 08:08 | NUR ---
NOTIFIED BY STAFF PATIENT IS REQUESTING PHONE NUMBER FOR [facility]. PATIENT STATES HE WAS ACCEPTED TO AN [facility] IN [place] AND HE BELIEVES HE WOULD LIKE TO GET TO FACILITY TODAY VERSUS TOMORROW IF HE IS MEDICALLY CLEARED.
--- NOTE | 2024-02-07 08:20 | NUR ---
PT UP IN ROOM. VITALS AND IS AND OS COMPLETE. PT PROVIDED ICE WATER AND ENCOURAGE TO INTAKE MORE WATER. PT WAS ALSO ENCOURAGED TO AMBULATE IN HALLS. DENIES ANY NEEDS AT THIS TIME, CALL LIGHT WITHIN REACH.
[2024-02-07 08:26] VITALS: BP 132/91
--- NOTE | 2024-02-07 08:38 | NUR ---
RECIEVED REPORT FROM MAST MAKER, IN TO GREET PATIENT. BREAKFAST TRAY BROUGHT IN, PER PT ONCE DISCHARGED HE WILL NEED A RIDE TO [facility] TEAM IN [place]. CASE MANAGEMENT BROUGHT PT TRANSPORTATION CONTACT INFORMATION. RN INFORMED PT SHE WILL CALL TO GET HIS RIDE SCHEDULED AFTER DR HAYES RANDALL MEETING TO DETERMINE IF OKAY TO D/C TODAY OR NOT. PT THANKFULL AND EATING BREAKFAST
[2024-02-07 10:40] VITALS: BP 139/94
--- NOTE | 2024-02-07 10:53 | NUR ---
WISHED PT WELL ON WAY OUT. PT EXPRESSED GRATITUDE, HOPE.
--- NOTE | 2024-02-07 10:56 | NUR ---
PT DISCHARGED TO HOME. WRITTEN DISCHARGE INSTRUCTIONS PROVIDED, PT VERBALIZES UNDERSTANDING, NO QUESITONS, TAXI ARRANGED TO PICKUP PT. IV'S REMOVED, LAST VITALS TAKEN. PT TAKEN TO LOBBY VIA WHEELCHAIR
== END 2024-02-07 10:45 | disposition home or self-care (01) | DRG 558 ==
LOC: ED 04:27 → MS 06:12 → CCU 06:12 → MS 06:12 → CCU 08:00
PROVIDERS: Internal Medicine; ADMIT Family Medicine; ATTEND Family Medicine
DX: M62.82 Rhabdomyolysis (principal); J06.9 Acute upper respiratory infection, unspecified; F31.9 Bipolar disorder, unspecified; F41.9 Anxiety disorder, unspecified; F15.10 Other stimulant abuse, uncomplicated; F17.210 Nicotine dependence, cigarettes, uncomplicated; E86.0 Dehydration; R74.01 Elevation of levels of liver transaminase levels; E83.42 Hypomagnesemia; E87.6 Hypokalemia; F39 Unspecified mood [affective] disorder; Z98.890 Other specified postprocedural states; Z88.0 Allergy status to penicillin; Z79.899 Other long term (current) drug therapy
CPT/HCPCS: 36415; 80053; 80307; 81001; 82553; 83605; 83735; 84100; 85025; 87040; 87502; A9270; G0480; J0696; J1650; J2405; J3475; J3480; J3490; J7030; J7060; J7121; U0002

== ENCOUNTER 2024-06-05 22:56 | Observation (INO) | payer MEDICAID ==
[~2024-06-05] VITALS: Ht 175.3 cm; Wt 83.0 kg
[~2024-06-05 22:56] MED LIST changes: +NICODERM CQ1 EAC2 TD
[2024-06-05] MEDS ORDERED: ondansetron HCL 4 MG/2 ML VIAL IV ONE ×2 (23:15→23:45)
[2024-06-05 23:23] LABS: HEMOGLOBIN 13.5 g/dL (12.0-18.0); MCH 29.8 (27-36)
[2024-06-05 23:26] LABS: BASOPHILS 0.9 % (0-2); EOSINOPHILS 2.4 % (0-6); HEMATOCRIT 39.6 % (35.0-50.0); LYMPHOCYTES 30.7 % (24-44); MCHC 34.1 g/dl (30-36); MCV 87.4 fl (81-99); MONOCYTES 16.7 % (0-12); NEUTROPHILS 49.3 % (39-80); PLATELET COUNT 251 K/uL (140-440); RBC 4.53 M/ul (4.3-5.7); RDW 13.2 (10.5-15.0)
[2024-06-05] MEDS ORDERED: SODIUM CHLORIDE 0.9% 1,000 ML IV PRN (23:45)
[2024-06-05] MEDS ORDERED: FAMOTIDINE 20 MG/ 2 ML VIAL IV ONE (23:45)
[2024-06-05 23:49] LABS: ALBUMIN 3.4 g/dL (3.4-5.0); ALBUMIN/GLOBULIN RATIO 0.81 (1.1-2.4); ANION GAP 10.1 (7-21); BILIRUBIN, TOTAL 0.7 ng/dL (0.2-1.0); BUN/CREATININE RATIO 22.54 (6.0-28.6); CALCIUM 8.6 mg/dL (8.5-10.1); CREATININE, SERUM 1.02 mg/dL (0.70-1.30); POTASSIUM 4.1 mmol/L (3.5-5.1); PROTEIN, TOTAL 7.6 g/dL (6.4-8.2)
[2024-06-06] VITALS (9 sets, daily range): BP systolic 109–120; BP diastolic 46–61
[2024-06-06] MEDS ORDERED: ACETAMINOPHEN 325 MG TAB PO PRN (00:45)
[2024-06-06] MEDS ORDERED: LACTATED RINGER'S 1,000 ML IV SCH ×2 (00:45→14:45)
[2024-06-06] MEDS ORDERED: ondansetron HCL 4 MG/2 ML VIAL IV PRN ×2 (00:45→14:45)
[2024-06-06] MEDS ORDERED: LACTATED RINGER'S 1,000 ML IV ONE (01:00)
--- NOTE | 2024-06-06 02:15 | NUR ---
pt ARRIVED TO THE FLOOR VIA WHEEL CHAIR. VITAL SIGNS DONE. ASSESSMENT DONE. pt PEED IN URINAL. pt DENIES ANY OTHER NEEDS AT THIS TIME. CALL LIGHT WITHIN REACH. pt WANTED FOOD AND DRINK. FOOD AND DRINK PROVIDED.
--- NOTE | 2024-06-06 03:45 | NUR ---
pt RESTING IN THE BED WITH EYES CLOSED. RR EVEN AND UNLABORED. CALL LIGHT WITHIN REACH.
--- NOTE | 2024-06-06 06:18 | NUR ---
pt RESTING IN THE BED. VITAL SIGNS DONE. pt DENIES ANY NEEDS AT THIS TIME. CALL LIGHT WITHIN REACH.
--- NOTE | 2024-06-06 07:40 | NUR ---
REPORTY RECEIVED FROM PLATFORM SUPERVISOR RN. PATIENT RESTING IN BED. DENIES ANY PAIN OR DISCOMFORT AT THIS TIME. IV SITE ASSESSED AND WNL. NEW BAG OF IVF HUNG. URINE SAMPLE OBTAINED VIA CLEAN CATCH AND SENT TO LAB. PATIENT RESTING IN BED WITH LAB IN ROOM. BREAKFAST AT BEDSIDE SET UP FOR PATIENT.
[2024-06-06 08:04] LABS: BILIRUBIN, URINE NEGATIVE (negative); BLOOD/HGB, URINE NEGATIVE (Negative); KETONE, URINE NEGATIVE (Negative); LEUK ESTERASE, URINE NEGATIVE (negative); NITRITE, URINE NEGATIVE (negative)
[2024-06-06 08:40] LABS: ALBUMIN 3.1 g/dL (3.4-5.0); ALBUMIN/GLOBULIN RATIO 0.84 (1.1-2.4); ANION GAP 11.2 (7-21); BILIRUBIN, TOTAL 0.6 ng/dL (0.2-1.0); CALCIUM 8.5 mg/dL (8.5-10.1); POTASSIUM 4.2 mmol/L (3.5-5.1); PROTEIN, TOTAL 6.8 g/dL (6.4-8.2)
[2024-06-06 08:40] LABS: AMPHETAMINES, URINE POSITIVE (NEGATIVE); BARBITURATES, URINE NEGATIVE (NEGATIVE); BENZODIAZEPINE, URINE NEGATIVE (NEGATIVE); BUPRENORPHINE, URINE POSITIVE (NEGATIVE); CANNABINOID, URINE NEGATIVE (NEGATIVE); COCAINE, URINE NEGATIVE (NEGATIVE); ECSTASY, URINE NEGATIVE (NEGATIVE); FENTANYL, URINE NEGATIVE (NEGATIVE); METHADONE, URINE NEGATIVE (NEGATIVE); OPIATES, URINE NEGATIVE (NEGATIVE); OXYCODONE, URINE NEGATIVE (NEGATIVE); PHENCYCLIDINE, URINE NEGATIVE (NEGATIVE)
--- NOTE | 2024-06-06 09:43 | NUR ---
PATIENT RESTING IN BED. VSS. I'S AND O'S RECORDED. PATIENT DENIES ANY PAIN RO DISCOMFORT AT THIS TIME. IV SITE REMAINS WNL. PATIENT IS ALERT AND OREITNED X 3 UNABLE TO TELL RN THE DATE, KNOWS THE CURRENT MONTH. DENIES ANY PAIN OR DISCOMFORT AT THIS TIME. DENIES PAIN TO FLANK AREA. CMS INTACT. PATIENT IS HARD TO MAINTAIN CONVERSATION HE WILL FALL TO SLEEP EAISLY AND QUICKLY. REPORTS TINGING TO BILATERAL HANDS. BALLOON MAKER EQUAL. RADIAL PULSES WNL. NO FURTHER NEEDS AT THIS TIME. CALL LIGHT WITHIN REACH.
--- NOTE | 2024-06-06 12:59 | NUR ---
IV SALINE LOCKED PER NEW ORDERS. PATIENT REPORTS NO PAIN OR DISCOMFORT. ONLY COMPLAINT AT THIS TIME IS TINGLING IN HANDS. LUNCH REMAINS AT BEDSIDE. PATIENT REPORTS HE WILL EAT " IN A LITTLE BIT". DENIES NEED TO VOID. REMAINS SLEEPY. NO FURTHER NEEDS. CALL LIGHT WITHIN REACH.
--- NOTE | 2024-06-06 13:35 | NUR ---
PATIENT REPORTS HE FEELS LIKE HIS " STOMACH IS UPSET." PATIENT CONCERNED THAT HE WILL BE DISCHARGED TODAY AND DOES NOT FEEL THAT HE IS READY TO BE DISCHARGED. RN COMMUNICATED WITH PATIENT THAT THERE IS NO KNOWN PLAN OF DISCHARGE THAT RN IS AWARE OF. PATIENT DENIES ANY NAUSEA, CHEST PAIN, OR SOB AT THIS TIME. CALL LIGHT WITHIN REACH.
[2024-06-06] MEDS ORDERED: BUPRENORPHINE HC8 MG SL (13:52)
--- NOTE | 2024-06-06 13:52 | NUR ---
MED REC COMPLETE
--- NOTE | 2024-06-06 14:45 | NUR ---
In and spoke with New. We discussed his last two admissions and there similarity. Pt states he went to [place] when he left here and went to [facility] for a month. He did not complete the program. He returned to [facility] 1 month ago, he had a bench warrent and was picked up and returned to correction a few days ago. 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 They released him and brought him to the hospital. Pt stating he will return to [facility]. He would like to use [facility]. I let him know I will call [facility] to clarify he can return. He asks I don't do this as he doesn't really want to go to rehab, he just needs transport back to [place]. I let him know, I can't knowingly schedule transport to [place] using [facility] if it isn't a medical ride. Pt asks if we could provide him a bus ticket and he would like to get to [place] to his dad's home by [place]. He does not want to speak with PENNIE. Let him know I will speak with Alise Montano about the possibility of a bus ticket. I returned to my office and printed a schedule and took it to him. He is now asking if I could assist him to get into [facility]. He states he spoke with his dad, dad feels he needs to go to rehab before returning home. I called and left a message for Donavon at [facility] in [place].
[2024-06-06] MEDS ORDERED: buprenorphine HCL 8 MG TAB.SUBL SL SCH (15:04)
--- NOTE | 2024-06-06 15:06 | NUR ---
IV RESTARTED PER ORDERS. PATIENT C/O NAUSEA. PRN ADMINSTERED. PATIENT DENIES ANY FURTHER NEEDS. CALL LIGHT WITHIN REACH.
--- NOTE | 2024-06-06 17:26 | NUR ---
IN TO ROUND ON PATIENT. EDUCATION ASSOCIATE STAFF IN ROOM WITH PATIENT AT THIS TIME.
--- NOTE | 2024-06-06 18:52 | NUR ---
PATIENT REPORTS TO THIS RN THAT HE GOT OUT OF BED AND VOIDED IN THE TOILET. PATIENT EDUCATED ON SAFETY AND IMPORTANCE OF USING CALL LIGHT. EDUCATED ON IMPORTANCE OF MONITORING INTAKE AND OUTPUT.
--- NOTE | 2024-06-06 19:02 | NUR ---
Patient had been taking themself to the bathroom without using their call light. RN and EMERGENCY MEDICINE PHYSICIAN ASSISTANT informed them of using their urinal and their call light for safety.
--- NOTE | 2024-06-06 19:04 | NUR ---
shift report received from dayshift kelly samuel at bedside. iv site wnl, fluids infusing wnl as directed. pt awake and on ra, rr even and unlabored. no distress noted. bed alarm on for safety and call light in reach. no additional needs or concerns, dinner tray left at bedside per pt request.
--- NOTE | 2024-06-06 20:24 | NUR ---
vs and i&o's collected. iv pump alarming, new bag hung and infusing wnl, iv site wnl. pump cleared. scheduled meds and iv fluids doble checked with second rn jessika, unable to scan. pt a/ox4, call light in reach and bed alarm on. eating dinner, fresh soda provided, pt states, "soda is good for you, it actually is. it's like fuel for me, it keeps me going". no additional needs.
[2024-06-06] MEDS ORDERED: OLANZapine 2.5 MG TAB PO SCH (21:00)
--- NOTE | 2024-06-06 22:00 | NUR ---
rounded on pt, pt resting in bed with eyes closed. on ra, rr even and unlabored. no distress noted, call light in reach. iv site wnl, fluids infusing as directed.
--- NOTE | 2024-06-06 23:19 | NUR ---
pt resting in bed, on ra. rr even and unlabored. no distress noted. call light in reach and pt appears comfortable and relaxed. iv site wnl, fluids infusing as directed.
--- NOTE | 2024-06-07 00:27 | NUR ---
rounded on pt, recently voided 200mls via urinal. iv fluids infusing wnl at 200mls/hr. snack and soda provided per pt request. call light in reach, pt steady on feet.
--- NOTE | 2024-06-07 01:24 | NUR ---
rounded on pt, perianesthesia rn jessika in room hanging new bag iv fluids, iv site wnl. fresh ice water provided. focused assessment completed, pt reports generalized pain 5/10-denies need for pain medication when asked. call light in reach.
[2024-06-07 02:20] VITALS: BP 101/45
[2024-06-07 02:33] VITALS: BP 101/45
--- NOTE | 2024-06-07 04:30 | NUR ---
rounded on pt, pt resting in bed with eyes closed. on ra, rr even and unlabored. no distress noted. iv site wnl, fluids infusing as directed.
[2024-06-07 05:02] VITALS: BP 112/58
--- NOTE | 2024-06-07 05:08 | NUR ---
TRUCK DRIVER INSTRUCTOR OBTAINED VITALS AND I&O. PT STATES NO NEEDS AT THIS TIME. CALL LIGHT WITHIN REACH.
--- NOTE | 2024-06-07 05:26 | NUR ---
iv site wnl, pump cleared. no needs or concerns verbalized. call light in reach.
[2024-06-07 05:39] LABS: BASOPHILS 0.4 % (0-2); EOSINOPHILS 7.2 % (0-6); HEMOGLOBIN 11.3 g/dL (12.0-18.0); LYMPHOCYTES 18.3 % (24-44); MCH 30.1 (27-36); MCHC 34.4 g/dl (30-36); MCV 87.6 fl (81-99); MONOCYTES 11.2 % (0-12); NEUTROPHILS 62.9 % (39-80); PLATELET COUNT 175 K/uL (140-440); RBC 3.77 M/ul (4.3-5.7)
[2024-06-07 05:56] LABS: ALBUMIN 2.5 g/dL (3.4-5.0); ALBUMIN/GLOBULIN RATIO 0.78 (1.1-2.4); ANION GAP 10.6 (7-21); BILIRUBIN, TOTAL 0.3 ng/dL (0.2-1.0); BUN/CREATININE RATIO 9.27 (6.0-28.6); CALCIUM 8.1 mg/dL (8.5-10.1); CREATININE, SERUM 0.97 mg/dL (0.70-1.30); MAGNESIUM 1.5 mg/dL (1.8-2.4); POTASSIUM 3.6 mmol/L (3.5-5.1); PROTEIN, TOTAL 5.7 g/dL (6.4-8.2)
--- NOTE | 2024-06-07 07:18 | NUR ---
REPORT RECEIVED FROM TARA MARTE RN. PATIENT RESTING IN BED WITH EYES CLOSED. RESPIRATIONS EVEN AND UNLABORED. IV SITE AND IVF CHECKED WITH WEB CONSULTANT RN. CALL LIGHT WITHIN REACH.
--- NOTE | 2024-06-07 08:13 | NUR ---
UR CLINICAL REVIEW: [facility]- MEETS CRITERIA FOR GENERAL CRITERIA: OBSERVATION CARE [facility] SOFTWARE IMPLEMENTATION SPECIALIST OBS 06/06/24 @ 0049 ORDER MATCHES REG WILL SEND CLINICALS FOR AUTH PLAN TO OR TO [place] FOR POTENTIAL DRUG REHAB 06/08/24
--- NOTE | 2024-06-07 08:15 | NUR ---
Spoke with New. UPdated I an provide a bus ticket to [place] if he wants to go. Dr. Espino plans on dc today. [facility] does not open until 10. He can go there and ask to be evaluated for admission. New now states his dad is working [employer]. He was suppose to go there yesterday when he discharged from the [facility], but came to the hospital. He would now like to go there for treatment. I will contact.
[2024-06-07] MEDS ORDERED: MAGNESIUM SULFATE 2 GM/50 ML BAG IV SCH (08:30)
[2024-06-07] MEDS ORDERED: OLANZAPINE7.5 MG PO (09:05)
--- NOTE | 2024-06-07 09:06 | NUR ---
LUCIANA IN TO SEE PATIENT.
[2024-06-07 09:11] VITALS: BP 101/41
--- NOTE | 2024-06-07 09:18 | NUR ---
Called and spoke with Shell from [facility]. She states she has been working with pts dad and New. They were questioning why he did show yesterday as they saw him and the plan was to meet at their office. Let her know he is hospitalized, but will be dcd this am. I would like to send him by taxi to their office as his dad wants him in rehab and he cannot go home to [place]. Confirmed their address of [address] [place] [address] as they have recently moved. and charge nurse updated. Pt will dc and we will provide taxi ride to [facility] office.
--- NOTE | 2024-06-07 09:28 | NUR ---
PATIENT RESTING IN BED. DENIES ANY PAIN OR DISCOMFORT AT THIS TIME. AM MEDICATIONS ADMINSTERED AT THIS TIME. IV SITE REMAINS WNL. LUNGS CTA, BOWEL TONES ACTIVE X 4 QUADRANTS. VOIDING QUANITY SUFFICIENT AT THIS TIME. DENIES ANY NAUSEA OR GI UPSET. NO FURTHER NEEDS. CALL LIGHT WITHIN REACH.
--- NOTE | 2024-06-07 10:40 | NUR ---
PATIENT RESTING IN BED WITH EYES CLOSED. WAKES TO VERBAL STIMULI. DENEIS ANY NEEDS. SECOND BAG OF MAG HUNG. IV SITE WNL. CALL LIGHT WITHIN REACH.
[2024-06-07] MEDS ORDERED: PHARMACY RENAL DOSE ADJUSTMENT 1 DOSE MISC PO SCH (12:00)
[2024-06-07 12:19] VITALS: BP 127/101
--- NOTE | 2024-06-07 12:56 | NUR ---
patient discharged with all personal belongings. discharge instructions provided. all questions answered. patient iv removed.
== END 2024-06-07 12:55 | disposition home or self-care (01) ==
LOC: ED 22:56 → MS 22:58
PROVIDERS: Internal Medicine; ADMIT Student in an Organized Health Care Education/Training Program; ATTEND Student in an Organized Health Care Education/Training Program
DX: M62.82 Rhabdomyolysis (principal); F15.10 Other stimulant abuse, uncomplicated; F31.9 Bipolar disorder, unspecified; Z88.1 Allergy status to other antibiotic agents; Z79.899 Other long term (current) drug therapy
CPT/HCPCS: 36415; 80053; 80307; 81003; 82553; 83690; 83735; 85025; 96361; 96374; 96375; 99285-25; J2405; J3475; J7030; J7121